=== PATIENT | female | born 1975 | race Caucasian/White ===

== ENCOUNTER → 2016-12-30 | Outpatient (CLI) | payer OTHER ==
--- NOTE | 2016-12-30 14:07 | MAMMOGRAPHY REPORT ---
BILATERAL DIGITAL DIAGNOSTIC MAMMOGRAM TOMOSYNTHESIS WITH CAD: 12/30/2016 CLINICAL HISTORY: The patient reports an episode of intense pain behind her right nipple approximate ly 3 weeks ago, which has now subsided greatly and is more diffuse throughout the right breast. She denies any new palpable lumps or nipple discharge. She is very active and believes it may be a pul led muscle. TECHNIQUE: Breast tomosynthesis in addition to standard 2D mammography was performed. Current study was also evaluated with a Computer Aided Detection (CAD) system. Bilateral CC and MLO 2-D and karina synthesis images and a 2-D right X CCL view were obtained. COMPARISON: No prior exams were available for comparison. BREAST COMPOSITION: The tissue of both breasts is almost entirely fatty. FINDINGS: There are no suspicious masses, calcifications, or areas of architectural distortion note d in either breast mammographically. A few scattered punctate benign-appearing calcifications are n oted bilaterally, which are predominantly dermal in location. Symmetric morphologically normal bila teral axillary lymph nodes are noted. Given that the pain is diffuse throughout the right breast, t argeted ultrasound was not performed. IMPRESSION: ACR BI-RADS CATEGORY 2: BENIGN No etiology for improving right breast pain evident mammographically. There is no mammographic evid ence of malignancy in either breast. Recommend clinical follow-up for right breast pain, and recomm end routine bilateral screening mammograms in one year. The patient has been verbally notified of t he results. Approximately 10% of breast cancers are not detected with mammography. A negative mammographic repor t should not delay biopsy if a clinically suggestive mass is present. Babita Perez M.D. ah/:12/30/2016 09:56:29 C Application Developer: Amisha [place], [facility] letter sent: Normal 1/2 BI-RADS Code: ACR BI-RADS Category 2: Benign
== END | disposition home or self-care (01) ==
LOC: C.MAMM 09:27
PROVIDERS: ATTEND Obstetrics & Gynecology
DX: N64.4 Mastodynia (principal)

== ENCOUNTER → 2017-04-21 | Outpatient (CLI) | payer OTHER ==
[2017-04-21 14:54] LABS: URINE APPEARANCE CLEAR (CLEAR); URINE BILIRUBIN NEG (NEG); URINE COLOR YELLOW; URINE NITRITE NEG (NEG); URINE SPECIFIC GRAVITY 1.019 (1.000-1.030); UROBILINOGEN NEG (NEG)
[2017-04-21 15:02] LABS: MANUAL MICROSCOPIC REQUIRED? NO; REVIEW REQ? NO
== END | disposition home or self-care (01) ==
LOC: C.LAB1850 12:38
PROVIDERS: ATTEND Obstetrics & Gynecology
DX: R10.2 Pelvic and perineal pain (principal)